=== PATIENT | female | born 1985 | race Caucasian/White ===

== ENCOUNTER → 2017-05-04 | Outpatient (CLI) | payer BC ==
--- NOTE | 2017-05-04 10:22 | DIAGNOSTIC IMAGING REPORT ---
SI JOINTS 3 OR MORE VIEWS CLINICAL HISTORY: Low back pain. Trauma. COMPARISON STUDY: No previous studies for comparison. FINDINGS: No fractures are visualized. There is no conventional radiographic evidence of an inflammatory sacroiliitis. IMPRESSION: No bony abnormalities identified. Electronically signed by: Jose Eduardo Viveros M.D. 05/04/2017 10:21 AM Dictated Date/Time: 05/04/2017 10:20 AM
== END | disposition home or self-care (01) ==
LOC: C.RADBC 09:54
PROVIDERS: ATTEND Family Medicine Adult Medicine
DX: M54.5 Low back pain (principal); W19.XXXA Unspecified fall, initial encounter

== ENCOUNTER → 2017-11-17 | Outpatient (CLI) | payer OTHER | LOC: C.PAPS 14:01 | PROVIDERS: ATTEND Physician Assistant | DX: Z12.4 Encounter for screening for malignant neoplasm of cervix (principal) ==

== ENCOUNTER 2022-05-19 07:43 | Inpatient (IN) ==
--- NOTE | 2022-05-19 07:59 | History & Physical Report ---
Date of Service May 19, 2022 Assessment & Plan (1) 41 weeks gestation of : (2) Encounter for induction of labor: Plan - Patient admitted to labor and delivery for initiation of medical induction of labor - Patient received Jarvis bulb placement yesterday, did not dislodge independently - Patient is at 4/75/-2 w/ inconsistent contractions, thus oxytocin augmentation of labor will be started per protocol - Once contractions are progressing, will consider ROM - Will anticipate epidural as contractions arise - Labs pending Admission and Anticipated Discharge Date Admission Date: May 19, 2022 History of Present Illness Chief Complaint: Induction at 41 wks. Primary Care Provider: Julio Mejias MD Subjective: Brittany is a 36 year old female 41w1d with FLORENTIN 05/11/22 determined by LMP who is presenting to L&D for induction of labor. Jarvis bulb placed last evening by Dr. Hogue, has not yet dislodged independently. Complications: None Reason for Induction/: Post-date Movement: Present Fluid Loss/ROM: None Bloody show/discharge: Light amount after Jarvis placement External FHT and uterine monitor: Category 1, baseline HR 130-135, good FHT variability, accelerations present w/o decelerations, inconsistent contractions Last OB appointment: 05/16 Dr. Johnson, regular care outpatient Labs: Blood Type: A+ Antibody Screen: Negative Hg/Hct (today): WBC/Plt (today): Rubella: Immune RPR: Non-reactive Gonorrhea: Negative Chlamydia: Negative HIV: Negative HbSAg: Negative GBS: Negative Cff-DNA/CF-SMA: Declined Allergies Allergy/AdvReac Type Severity Reaction Status Date / Time No Known Drug Allergies Allergy Verified 05/16/22 15:33 Home Medications Medication Instructions Recorded Confirmed Type prenat.vits,toro,[id number] 1 tab PO DAILY 09/25/21 05/19/22 History Patient History Medical History H/O varicella Hypertriglyceridemia Surgical History S/P tonsillectomy [place] teeth extracted Family History Grandmother (Paternal) Diabetes Grandfather (Maternal) Colorectal cancer Father A-fib Other Alzheimer disease Dyslipidemia Hypertension Parkinson disease Twin Denies family history of Ovarian cancer Breast cancer Social History Smoking Status: Never smoker Second Hand Exposure: No; Hx Alcohol Use: No Hx Substance Use: No Preferred Language: Swedish Communication Ability: Effective Glost Tile Sorter Required: No Beliefs That Will Affect Care: None marital status: marital status details: Ramon (39) [phone] Current Living Situation: Spouse Current Living Situation Comment: : Ramon current occupational status: employed 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 No acute distress. Cardiac: Regular rate and rhythm, no murmurs/rubs/gallops. Respiratory: CTAB, no wheezes/rales/rhonchi. No increased work of breathing. Symmetrical chest rise. No respiratory distress. Abdomen: Gravid; EFW 7-[address] Johnson, FHT present, vertex position Pelvic: Dilation 4 cm; Effacement 75; Station -[address] Johnson Lower Extremities: No lower extremity edema or swelling. No deep calf pain. Gladis's negative bilaterally. Results & Data ([facility]) Vital Signs (Past 12 Hours) Vital Signs Pulse BP 05/19/22 07:53 86 128/77 Supervising Physician Co-Signing Physician Notes Resident Physician Supervision Note: I interviewed and examined the patient. Discussed with Dr. Blunt and agree with findings and plan as documented in the note. Any exceptions or clarifications are listed here: agrree with above, planned postdates induction. jarvis removed. cx favorable. pitocin and arom when indicated. epidural on demand. fetus category one. anticipate . Documented By: Mulu Johnson MD, FACOG Resident Activity Tracking Resident Involvement: Resident Care Provided Care Provided: OB Delivery
[2022-05-19] MEDS ORDERED: LIDOCAINE 1% LOCAL 20 ML VIAL INFIL PRN (08:00)
[2022-05-19] MEDS ORDERED: OXYTOCIN 30 UNITS/500 ML BAG IV PRN ×2 (08:00→08:01)
[2022-05-19 08:23] LABS: Hematocrit (blood only) 34.7 % (34.1-44.9); Hemoglobin 11.9 g/dl (12.0-16.0); Mean Corpuscular Hemoglobin 29.8 pg (25.0-34.0); Mean Corpuscular Hgb Conc 34.3 g/dL (32.0-36.0); Mean Corpuscular Volume 86.8 fL (80.0-100.0); Mean Platelet Volume 9.4 fL (9.4-12.3); Platelet Count 184 K/uL (130-400); RDW Coefficient of Variation 13.1 % (11.5-14.5); RDW Standard Deviation 40.9 fL (36.4-46.3); White Blood Count 9.11 K/ul (4.8-10.8)
[2022-05-19] MEDS: LACTATED RINGER'S 1,000 ML IV PRN ×3 (08:25→22:12)
[2022-05-19] MEDS ORDERED: ePHEDrine sulfate 50 MG/ML AMP ONE (12:33)
[2022-05-19] MEDS ORDERED: SODIUM CHLORIDE 0.9% INJ 10 ML VIAL ONE (12:33)
[2022-05-19] MEDS ORDERED: fentaNYL citrate 100 MCG/2 ML VIAL ONE (12:33)
[2022-05-19] MEDS ORDERED: BUPIVACAINE 0.25% 30 ML VIAL ONE (12:33)
[2022-05-19] MEDS ORDERED: fentaNYL 2MCG/ML ROPIVACAINE 1.25MG/ML 100 ML BAG EPI ONE (12:34)
[2022-05-19] MEDS ORDERED: LIDOCAINE 2%/EPINEPHRINE 1:200,000 20 ML SDV ONE (12:34)
--- NOTE | 2022-05-19 12:52 | Anesthesiology Consultation ---
Date of Service May 19, 2022 Assessment & Plan Chart Review Chart Review: Acceptable Risk for Surgery, Patient NOT seen in Pre Admission Testing and Acceptable Risk for Labor Epidural Consults Requested none ASA ASA2 Proposed Anesthesia Anesthesia Type: Labor Epidural and CSE History Height/Weight Height: 5 ft 9 in Weight: 75.296 kg Allergies Allergy/AdvReac Type Severity Reaction Status Date / Time No Known Drug Allergies Allergy Verified 05/16/22 15:33 Medications Home Medications Medication Instructions Recorded Confirmed Last Taken prenat.vits,toro,[id number]-uuot-bqlra 1 tab PO DAILY 09/25/21 05/19/22 05/18/22 Active Medications Generic Name Dose Route Start Last Admin Trade Name Freq PRN Reason Stop Dose Admin Lactated Ringer's 1,000 mls @ 125 mls/hr 05/19/22 08:00 05/19/22 08:25 Lr IV 05/21/22 07:59 125 mls/hr .Q8H PRN Administration L&D Protocol Protocol Oxytocin 30 units in 500 mls @ 14 mls/hr 05/19/22 08:01 05/19/22 12:00 Pitocin IV 05/21/22 08:00 0.84 units/hr .Q24H PRN 14 mls/hr Labor Induction/Augmentation Titration Protocol 0.84 UNITS/HR Past Medical History Medical History H/O varicella Hypertriglyceridemia Exercise / Class Metabolic Activity II 4-5 Yardwork/Stairs/Walk up hill Past Family History Family History Grandmother (Paternal) Diabetes Grandfather (Maternal) Colorectal cancer Father A-fib Other Alzheimer disease Dyslipidemia Hypertension Parkinson disease Twin Denies family history of Ovarian cancer Breast cancer Past Surgical History Surgical History S/P tonsillectomy [place] teeth extracted Past Anesthesia History No Hx of Anesthesia Complications and No Family Hx of Anesthesia Complications History of PONV No Hx of PONV and No Hx of Motion Sickness Social History Smoking Status: Never smoker Hx Alcohol Use: No Hx Substance Use: No substance use type: does not use Physical Exam Vital Signs Last Vital Signs Temp 36.5 C 05/19/22 12:00 Pulse 70 05/19/22 11:20 Resp 16 05/19/22 07:57 BP 117/68 05/19/22 11:20 Testing Laboratory Results 05/19/22 08:13
[2022-05-19] MEDS ORDERED: NALOXONE HCL 1 MG in SODIUM CHLORIDE 0.9% 1000ML 1,000 ML IV PRN (13:31)
[2022-05-19] MEDS ORDERED: diphenhydrAMINE 50 MG/ML VIAL IV PRN (13:31)
[2022-05-19] MEDS ORDERED: PROMETHAZINE HCL 25 MG in SODIUM CHLORIDE 0.9% 50 ML IV PRN (13:31)
[2022-05-19] MEDS ORDERED: ePHEDrine sulfate 50 MG/ML AMP IV PRN (13:31)
[2022-05-19] MEDS ORDERED: ONDANSETRON INJ 2 MG/ML 2 ML VIAL IV PRN (13:31)
[2022-05-19] MEDS ORDERED: fentaNYL 2MCG/ML ROPIVACAINE 1.25MG/ML 100 ML BAG EPI PRN (13:31)
[2022-05-19] MEDS ORDERED: NALOXONE HCL 0.4 MG/1 ML VIAL/CARP IV PRN (13:31)
[2022-05-19] MEDS ORDERED: NALBUPHINE HCL INJ 10 MG/ML AMP IV PRN (13:31)
--- NOTE | 2022-05-19 14:57 | Labor Progress Brief Note ---
Date of Service May 19, 2022 Subjective comfortable Assessment & Plan (1) Encounter for induction of labor: Plan arom done, continue current management. fetus category one. Admission and Anticipated Discharge Date Admission Date: May 19, 2022 Physical Exam Physical Exam: cx--4-5/75/-2 arom--clear toco--q2-4min, pit at 20 efm--130s wtih mod variability, accels to 150s, no decels Results & Data ([facility]) Vital Signs (Past 12 Hours) Vital Signs Temp Pulse Resp BP Pulse Ox 05/19/22 07:57 36.4 C L 86 16 127/77 05/19/22 14:50 100 05/19/22 14:50 73 05/19/22 14:45 100 05/19/22 14:45 60 05/19/22 14:42 57 L 05/19/22 14:42 108/65 05/19/22 14:40 100 05/19/22 14:40 58 L 05/19/22 14:35 100 05/19/22 14:35 59 L 05/19/22 14:30 98 05/19/22 14:30 62 05/19/22 14:28 94 05/19/22 14:28 63 05/19/22 14:27 60 05/19/22 14:27 108/65 05/19/22 14:25 100 05/19/22 14:25 62 05/19/22 14:20 100 05/19/22 14:20 64 05/19/22 14:15 100 05/19/22 14:15 61 05/19/22 14:10 100 05/19/22 14:10 62 05/19/22 14:07 59 L 05/19/22 14:07 114/69 05/19/22 14:05 100 05/19/22 14:05 63 05/19/22 14:02 66 05/19/22 14:02 110/72 05/19/22 14:00 100 05/19/22 14:00 64 05/19/22 13:57 63 05/19/22 13:57 109/74 05/19/22 13:55 100 05/19/22 13:55 63 05/19/22 13:52 61 05/19/22 13:52 109/62 05/19/22 13:50 100 05/19/22 13:50 63 05/19/22 13:47 66 05/19/22 13:47 114/64 05/19/22 13:45 99 05/19/22 13:45 70 05/19/22 13:43 63 05/19/22 13:43 112/61 05/19/22 13:40 99 05/19/22 13:40 68 05/19/22 13:37 68 05/19/22 13:37 114/65 05/19/22 13:35 99 05/19/22 13:35 68 05/19/22 13:30 99 05/19/22 13:30 69 05/19/22 13:28 73 05/19/22 13:28 112/68 05/19/22 13:25 100 05/19/22 13:25 82 05/19/22 13:26 68 05/19/22 13:26 117/79 05/19/22 13:20 100 05/19/22 13:20 77 05/19/22 13:15 99 05/19/22 13:15 82 05/19/22 13:12 91 05/19/22 13:12 94 H 05/19/22 13:10 100 05/19/22 13:10 79 05/19/22 13:10 81 05/19/22 13:10 116/71 05/19/22 13:04 100 05/19/22 13:04 84 05/19/22 12:00 36.5 C 05/19/22 11:20 70 05/19/22 11:20 117/68 05/19/22 10:22 71 05/19/22 10:22 114/70 05/19/22 07:53 86 128/77 Coding Level of Care Code None Diagnoses Encounter for induction of labor Z34.90
--- NOTE | 2022-05-19 17:19 | Labor Progress Brief Note ---
Date of Service May 19, 2022 Subjective comfortable Assessment & Plan (1) Encounter for induction of labor: Plan iupc placed. will increase max of pit to 30, fetus category one. Admission and Anticipated Discharge Date Admission Date: May 19, 2022 Physical Exam Physical Exam: cx--4-5/75/-2 toco--q2-6min, pit at 20 efm--120s with mod variability, accels to 160s, no decels Results & Data ([facility]) Vital Signs (Past 12 Hours) Vital Signs Temp Pulse Resp BP Pulse Ox 05/19/22 07:57 36.4 C L 86 16 127/77 05/19/22 17:10 99 05/19/22 17:10 73 05/19/22 17:05 100 05/19/22 17:05 68 05/19/22 17:00 100 05/19/22 17:00 62 05/19/22 16:57 60 05/19/22 16:57 98/56 L 05/19/22 16:55 99 05/19/22 16:55 63 05/19/22 16:50 100 05/19/22 16:50 72 05/19/22 16:50 91 05/19/22 16:50 71 05/19/22 16:45 100 05/19/22 16:45 60 05/19/22 16:42 58 L 05/19/22 16:42 99/61 L 05/19/22 16:40 100 05/19/22 16:40 62 05/19/22 16:35 100 05/19/22 16:35 68 05/19/22 16:30 99 05/19/22 16:30 67 05/19/22 16:25 99 05/19/22 16:25 73 05/19/22 15:59 20 05/19/22 15:59 20 05/19/22 16:20 99 05/19/22 16:20 69 05/19/22 16:15 98 05/19/22 16:15 61 05/19/22 16:11 67 05/19/22 16:11 103/59 L 05/19/22 16:10 100 05/19/22 16:10 66 05/19/22 16:05 99 05/19/22 16:05 63 05/19/22 16:00 100 05/19/22 16:00 71 05/19/22 15:56 62 05/19/22 15:56 104/60 05/19/22 15:55 100 05/19/22 15:55 60 05/19/22 15:50 99 05/19/22 15:50 74 05/19/22 15:45 100 05/19/22 15:45 73 05/19/22 15:41 64 05/19/22 15:41 100/56 L 05/19/22 15:40 99 05/19/22 15:40 63 05/19/22 15:39 93 05/19/22 15:39 71 05/19/22 15:35 100 05/19/22 15:35 65 05/19/22 15:30 100 05/19/22 15:30 61 05/19/22 15:26 65 05/19/22 15:26 98/53 L 05/19/22 15:25 100 05/19/22 15:25 60 05/19/22 15:20 100 05/19/22 15:20 62 05/19/22 15:15 100 05/19/22 15:15 66 05/19/22 15:10 100 05/19/22 15:10 69 05/19/22 15:11 61 05/19/22 15:11 101/58 L 05/19/22 14:52 36.9 C 05/19/22 15:05 100 05/19/22 15:05 68 05/19/22 15:00 100 05/19/22 15:00 67 05/19/22 14:57 62 05/19/22 14:57 107/59 L 05/19/22 14:55 100 05/19/22 14:55 66 05/19/22 14:50 100 05/19/22 14:50 73 05/19/22 14:45 100 05/19/22 14:45 60 05/19/22 14:42 57 L 05/19/22 14:42 108/65 05/19/22 14:40 100 05/19/22 14:40 58 L 05/19/22 14:35 100 05/19/22 14:35 59 L 05/19/22 14:30 98 05/19/22 14:30 62 05/19/22 14:28 94 05/19/22 14:28 63 09/26/22 14:27 60 05/19/22 14:27 108/65 05/19/22 14:25 100 05/19/22 14:25 62 05/19/22 14:20 100 05/19/22 14:20 64 05/19/22 14:15 100 05/19/22 14:15 61 05/19/22 14:10 100 05/19/22 14:10 62 05/19/22 14:07 59 L 05/19/22 14:07 114/69 05/19/22 14:05 100 05/19/22 14:05 63 05/19/22 14:02 66 05/19/22 14:02 110/72 05/19/22 14:00 100 05/19/22 14:00 64 05/19/22 13:57 63 05/19/22 13:57 109/74 05/19/22 13:55 100 05/19/22 13:55 63 05/19/22 13:52 61 05/19/22 13:52 109/62 05/19/22 13:50 100 05/19/22 13:50 63 05/19/22 13:47 66 05/19/22 13:47 114/64 05/19/22 13:45 99 05/19/22 13:45 70 05/19/22 13:43 63 05/19/22 13:43 112/61 05/19/22 13:40 99 05/19/22 13:40 68 05/19/22 13:37 68 05/19/22 13:37 114/65 05/19/22 13:35 99 05/19/22 13:35 68 05/19/22 13:30 99 05/19/22 13:30 69 05/19/22 13:28 73 05/19/22 13:28 112/68 05/19/22 13:25 100 05/19/22 13:25 82 05/19/22 13:26 68 05/19/22 13:26 117/79 05/19/22 13:20 100 05/19/22 13:20 77 05/19/22 13:15 99 05/19/22 13:15 82 05/19/22 13:12 91 05/19/22 13:12 94 H 05/19/22 13:10 100 05/19/22 13:10 79 05/19/22 13:10 81 05/19/22 13:10 116/71 05/19/22 13:04 100 05/19/22 13:04 84 05/19/22 12:00 36.5 C 05/19/22 11:20 70 05/19/22 11:20 117/68 05/19/22 10:22 71 05/19/22 10:22 114/70 05/19/22 07:53 86 128/77 Coding Level of Care Code None Diagnoses Encounter for induction of labor Z34.90
--- NOTE | 2022-05-19 20:05 | Labor Progress Brief Note ---
Date of Service May 19, 2022 Subjective comfortable Assessment & Plan (1) Encounter for induction of labor: Plan continue current plan. Fetus overall category one. Starting to finally make some change. MVUs are over 200 but pattern is irregular. Will continue to monitor closely. Admission and Anticipated Discharge Date Admission Date: May 19, 2022 Physical Exam Physical Exam: cx--/-2 toco--irregular pattern with spacing. q2-5min, pit at 24 efm--130s with mod variability, small accels , early decels with some contractions. Results & Data ([facility]) Vital Signs (Past 12 Hours) Vital Signs Temp Pulse Resp BP Pulse Ox 05/19/22 20:00 100 05/19/22 20:00 68 05/19/22 19:55 100 05/19/22 19:55 67 05/19/22 19:56 63 05/19/22 19:56 113/68 05/19/22 19:52 91 05/19/22 19:52 71 05/19/22 19:50 100 05/19/22 19:50 70 05/19/22 19:50 58 L 05/19/22 19:50 106/65 05/19/22 19:45 100 05/19/22 19:45 58 L 05/19/22 19:40 100 05/19/22 19:40 60 05/19/22 19:35 98 05/19/22 19:35 65 05/19/22 19:30 99 05/19/22 19:30 59 L 05/19/22 19:30 67 05/19/22 19:30 112/65 05/19/22 19:25 95 05/19/22 19:25 63 05/19/22 19:22 89 L 05/19/22 19:22 67 05/19/22 19:20 100 05/19/22 19:20 61 05/19/22 19:15 100 05/19/22 19:15 60 05/19/22 19:13 92 05/19/22 19:13 64 05/19/22 19:11 65 05/19/22 19:11 109/74 05/19/22 19:10 100 05/19/22 19:10 66 05/19/22 19:00 18 05/19/22 19:00 18 05/19/22 19:05 100 05/19/22 19:05 57 L 05/19/22 19:03 92 05/19/22 19:03 71 05/19/22 19:00 100 05/19/22 19:00 60 05/19/22 18:57 60 05/19/22 18:57 107/64 05/19/22 18:55 100 05/19/22 18:55 59 L 05/19/22 18:50 100 05/19/22 18:50 65 05/19/22 18:45 100 05/19/22 18:45 67 05/19/22 18:41 63 05/19/22 18:41 103/58 L 05/19/22 18:40 100 05/19/22 18:40 61 05/19/22 18:35 100 05/19/22 18:35 62 05/19/22 18:30 16 05/19/22 18:30 16 05/19/22 18:30 100 05/19/22 18:30 58 L 05/19/22 18:26 57 L 05/19/22 18:26 101/59 L 05/19/22 18:25 100 05/19/22 18:25 57 L 05/19/22 18:20 100 05/19/22 18:20 57 L 05/19/22 18:15 100 05/19/22 18:15 59 L 05/19/22 18:11 57 L 05/19/22 18:11 104/62 05/19/22 18:10 100 05/19/22 18:10 60 05/19/22 18:05 99 05/19/22 18:05 60 05/19/22 18:00 100 05/19/22 18:00 56 L 05/19/22 17:55 100 05/19/22 17:55 58 L 05/19/22 17:56 60 05/19/22 17:56 97/56 L 05/19/22 17:50 100 05/19/22 17:50 58 L 05/19/22 17:45 100 05/19/22 17:45 63 05/19/22 17:42 60 05/19/22 17:42 104/62 05/19/22 17:40 100 05/19/22 17:40 63 05/19/22 17:30 18 05/19/22 17:30 18 09/26/22 17:35 100 05/19/22 17:35 62 05/19/22 17:30 100 05/19/22 17:30 73 05/19/22 17:25 100 05/19/22 17:25 64 05/19/22 17:26 64 05/19/22 17:26 100/55 L 05/19/22 17:23 90 05/19/22 17:23 66 05/19/22 17:20 100 05/19/22 17:20 63 05/19/22 17:15 100 05/19/22 17:15 75 05/19/22 17:10 99 05/19/22 17:10 73 05/19/22 17:05 100 05/19/22 17:05 68 05/19/22 17:00 100 05/19/22 17:00 62 05/19/22 16:57 60 05/19/22 16:57 98/56 L 05/19/22 16:55 99 05/19/22 16:55 63 05/19/22 16:50 100 05/19/22 16:50 72 05/19/22 16:50 91 05/19/22 16:50 71 05/19/22 16:45 100 05/19/22 16:45 60 05/19/22 16:42 58 L 05/19/22 16:42 99/61 L 05/19/22 16:40 100 05/19/22 16:40 62 05/19/22 16:35 100 05/19/22 16:35 68 05/19/22 16:30 99 05/19/22 16:30 67 05/19/22 16:25 99 05/19/22 16:25 73 05/19/22 15:59 20 05/19/22 15:59 20 05/19/22 16:20 99 05/19/22 16:20 69 05/19/22 16:15 98 05/19/22 16:15 61 05/19/22 16:11 67 05/19/22 16:11 103/59 L 05/19/22 16:10 100 05/19/22 16:10 66 05/19/22 16:05 99 05/19/22 16:05 63 05/19/22 16:00 100 05/19/22 16:00 71 09/26/22 15:56 62 05/19/22 15:56 104/60 05/19/22 15:55 100 05/19/22 15:55 60 05/19/22 15:50 99 05/19/22 15:50 74 05/19/22 15:45 100 05/19/22 15:45 73 05/19/22 15:41 64 05/19/22 15:41 100/56 L 05/19/22 15:40 99 05/19/22 15:40 63 05/19/22 15:39 93 05/19/22 15:39 71 05/19/22 15:35 100 05/19/22 15:35 65 05/19/22 15:30 100 05/19/22 15:30 61 05/19/22 15:26 65 05/19/22 15:26 98/53 L 05/19/22 15:25 100 05/19/22 15:25 60 05/19/22 15:20 100 05/19/22 15:20 62 05/19/22 15:15 100 05/19/22 15:15 66 05/19/22 15:10 100 05/19/22 15:10 69 05/19/22 15:11 61 05/19/22 15:11 101/58 L 05/19/22 14:52 36.9 C 05/19/22 15:05 100 05/19/22 15:05 68 05/19/22 15:00 100 05/19/22 15:00 67 05/19/22 14:57 62 05/19/22 14:57 107/59 L 05/19/22 14:55 100 05/19/22 14:55 66 05/19/22 14:50 100 05/19/22 14:50 73 05/19/22 14:45 100 05/19/22 14:45 60 05/19/22 14:42 57 L 05/19/22 14:42 108/65 05/19/22 14:40 100 05/19/22 14:40 58 L 05/19/22 14:35 100 05/19/22 14:35 59 L 05/19/22 14:30 98 05/19/22 14:30 62 05/19/22 14:28 94 05/19/22 14:28 63 05/19/22 14:27 60 05/19/22 14:27 108/65 05/19/22 14:25 100 05/19/22 14:25 62 05/19/22 14:20 100 05/19/22 14:20 64 05/19/22 14:15 100 05/19/22 14:15 61 05/19/22 14:10 100 05/19/22 14:10 62 05/19/22 14:07 59 L 05/19/22 14:07 114/69 05/19/22 14:05 100 05/19/22 14:05 63 05/19/22 14:02 66 05/19/22 14:02 110/72 05/19/22 14:00 100 05/19/22 14:00 64 05/19/22 13:57 63 05/19/22 13:57 109/74 05/19/22 13:55 100 05/19/22 13:55 63 05/19/22 13:52 61 05/19/22 13:52 109/62 05/19/22 13:50 100 05/19/22 13:50 63 05/19/22 13:47 66 05/19/22 13:47 114/64 05/19/22 13:45 99 05/19/22 13:45 70 05/19/22 13:43 63 05/19/22 13:43 112/61 05/19/22 13:40 99 05/19/22 13:40 68 05/19/22 13:37 68 05/19/22 13:37 114/65 05/19/22 13:35 99 05/19/22 13:35 68 05/19/22 13:30 99 05/19/22 13:30 69 05/19/22 13:28 73 05/19/22 13:28 112/68 05/19/22 13:25 100 05/19/22 13:25 82 05/19/22 13:26 68 05/19/22 13:26 117/79 05/19/22 13:20 100 05/19/22 13:20 77 05/19/22 13:15 99 05/19/22 13:15 82 05/19/22 13:12 91 05/19/22 13:12 94 H 05/19/22 13:10 100 05/19/22 13:10 79 05/19/22 13:10 81 05/19/22 13:10 116/71 05/19/22 13:04 100 05/19/22 13:04 84 05/19/22 12:00 36.5 C 05/19/22 11:20 70 05/19/22 11:20 117/68 05/19/22 10:22 71 05/19/22 10:22 114/70 Coding Level of Care Code None Diagnoses Encounter for induction of labor Z34.90
--- NOTE | 2022-05-19 22:10 | Labor Progress Brief Note ---
Date of Service May 19, 2022 Subjective noted some left sided pain, repositioned Assessment & Plan (1) Encounter for induction of labor: Plan begin stage two . fetus overall reassuring. anticipate . Admission and Anticipated Discharge Date Admission Date: May 19, 2022 Physical Exam Physical Exam: cx--c/c/+2 toco--q2-5min efm--130s wtih mod variabiltiy, small accels, early with some contractions. Results & Data ([facility]) Vital Signs (Past 12 Hours) Vital Signs Temp Pulse Resp BP Pulse Ox 05/19/22 22:05 100 05/19/22 22:05 62 05/19/22 22:00 100 05/19/22 22:00 61 05/19/22 21:56 61 05/19/22 21:56 111/69 05/19/22 21:55 97 05/19/22 21:55 71 05/19/22 21:50 100 05/19/22 21:50 58 L 05/19/22 21:45 98 05/19/22 21:45 71 05/19/22 21:40 16 05/19/22 21:40 36.9 C 16 05/19/22 21:40 99 05/19/22 21:40 65 05/19/22 21:41 57 L 05/19/22 21:41 99/55 L 05/19/22 21:35 98 05/19/22 21:35 60 05/19/22 21:30 99 05/19/22 21:30 58 L 05/19/22 21:26 59 L 05/19/22 21:26 97/55 L 05/19/22 21:25 99 05/19/22 21:25 58 L 05/19/22 21:20 99 05/19/22 21:20 61 05/19/22 21:15 100 05/19/22 21:15 58 L 05/19/22 21:10 100 05/19/22 21:10 59 L 05/19/22 21:11 66 05/19/22 21:11 98/59 L 05/19/22 21:10 92 05/19/22 21:10 61 05/19/22 21:05 100 05/19/22 21:05 67 05/19/22 21:00 100 05/19/22 21:00 62 05/19/22 20:56 58 L 05/19/22 20:56 100/58 L 05/19/22 20:55 100 05/19/22 20:55 60 05/19/22 20:50 100 05/19/22 20:50 69 05/19/22 20:45 97 05/19/22 20:45 64 05/19/22 20:42 63 05/19/22 20:42 99/55 L 05/19/22 20:40 95 05/19/22 20:40 72 05/19/22 20:35 98 05/19/22 20:35 67 05/19/22 20:30 99 05/19/22 20:30 70 05/19/22 20:27 64 05/19/22 20:27 98/53 L 05/19/22 20:25 99 05/19/22 20:25 71 05/19/22 19:30 18 05/19/22 19:30 36.6 C 18 05/19/22 20:20 99 05/19/22 20:20 64 05/19/22 20:15 99 05/19/22 20:15 68 05/19/22 20:10 100 05/19/22 20:10 62 05/19/22 20:11 63 05/19/22 20:11 91/53 L 05/19/22 20:05 100 05/19/22 20:05 66 05/19/22 20:00 100 05/19/22 20:00 68 05/19/22 19:55 100 05/19/22 19:55 67 05/19/22 19:56 63 05/19/22 19:56 113/68 05/19/22 19:52 91 05/19/22 19:52 71 05/19/22 19:50 100 05/19/22 19:50 70 05/19/22 19:50 58 L 05/19/22 19:50 106/65 05/19/22 19:45 100 05/19/22 19:45 58 L 05/19/22 19:40 100 05/19/22 19:40 60 05/19/22 19:35 98 05/19/22 19:35 65 05/19/22 19:30 99 05/19/22 19:30 59 L 05/19/22 19:30 67 05/19/22 19:30 112/65 05/19/22 19:25 95 05/19/22 19:25 63 05/19/22 19:22 89 L 05/19/22 19:22 67 05/19/22 19:20 100 05/19/22 19:20 61 05/19/22 19:15 100 05/19/22 19:15 60 05/19/22 19:13 92 05/19/22 19:13 64 05/19/22 19:11 65 05/19/22 19:11 109/74 05/19/22 19:10 100 05/19/22 19:10 66 05/19/22 19:00 18 05/19/22 19:00 18 05/19/22 19:05 100 05/19/22 19:05 57 L 05/19/22 19:03 92 05/19/22 19:03 71 05/19/22 19:00 100 05/19/22 19:00 60 05/19/22 18:57 60 05/19/22 18:57 107/64 05/19/22 18:55 100 05/19/22 18:55 59 L 05/19/22 18:50 100 05/19/22 18:50 65 05/19/22 18:45 100 05/19/22 18:45 67 05/19/22 18:41 63 05/19/22 18:41 103/58 L 05/19/22 18:40 100 05/19/22 18:40 61 05/19/22 18:35 100 05/19/22 18:35 62 05/19/22 18:30 16 05/19/22 18:30 16 05/19/22 18:30 100 05/19/22 18:30 58 L 05/19/22 18:26 57 L 05/19/22 18:26 101/59 L 05/19/22 18:25 100 05/19/22 18:25 57 L 05/19/22 18:20 100 05/19/22 18:20 57 L 05/19/22 18:15 100 05/19/22 18:15 59 L 05/19/22 18:11 57 L 05/19/22 18:11 104/62 05/19/22 18:10 100 05/19/22 18:10 60 05/19/22 18:05 99 05/19/22 18:05 60 05/19/22 18:00 100 05/19/22 18:00 56 L 05/19/22 17:55 100 05/19/22 17:55 58 L 05/19/22 17:56 60 05/19/22 17:56 97/56 L 05/19/22 17:50 100 05/19/22 17:50 58 L 05/19/22 17:45 100 05/19/22 17:45 63 05/19/22 17:42 60 05/19/22 17:42 104/62 05/19/22 17:40 100 05/19/22 17:40 63 05/19/22 17:30 18 05/19/22 17:30 18 05/19/22 17:35 100 05/19/22 17:35 62 05/19/22 17:30 100 05/19/22 17:30 73 05/19/22 17:25 100 05/19/22 17:25 64 05/19/22 17:26 64 05/19/22 17:26 100/55 L 05/19/22 17:23 90 05/19/22 17:23 66 05/19/22 17:20 100 05/19/22 17:20 63 05/19/22 17:15 100 05/19/22 17:15 75 05/19/22 17:10 99 05/19/22 17:10 73 05/19/22 17:05 100 05/19/22 17:05 68 05/19/22 17:00 100 05/19/22 17:00 62 05/19/22 16:57 60 05/19/22 16:57 98/56 L 05/19/22 16:55 99 05/19/22 16:55 63 05/19/22 16:50 100 05/19/22 16:50 72 05/19/22 16:50 91 05/19/22 16:50 71 05/19/22 16:45 100 05/19/22 16:45 60 05/19/22 16:42 58 L 05/19/22 16:42 99/61 L 05/19/22 16:40 100 05/19/22 16:40 62 05/19/22 16:35 100 05/19/22 16:35 68 05/19/22 16:30 99 05/19/22 16:30 67 05/19/22 16:25 99 05/19/22 16:25 73 05/19/22 15:59 20 05/19/22 15:59 20 05/19/22 16:20 99 05/19/22 16:20 69 05/19/22 16:15 98 05/19/22 16:15 61 05/19/22 16:11 67 05/19/22 16:11 103/59 L 05/19/22 16:10 100 05/19/22 16:10 66 05/19/22 16:05 99 05/19/22 16:05 63 05/19/22 16:00 100 05/19/22 16:00 71 05/19/22 15:56 62 05/19/22 15:56 104/60 05/19/22 15:55 100 05/19/22 15:55 60 05/19/22 15:50 99 05/19/22 15:50 74 05/19/22 15:45 100 05/19/22 15:45 73 05/19/22 15:41 64 05/19/22 15:41 100/56 L 05/19/22 15:40 99 05/19/22 15:40 63 05/19/22 15:39 93 05/19/22 15:39 71 05/19/22 15:35 100 05/19/22 15:35 65 05/19/22 15:30 100 05/19/22 15:30 61 05/19/22 15:26 65 05/19/22 15:26 98/53 L 05/19/22 15:25 100 05/19/22 15:25 60 05/19/22 15:20 100 05/19/22 15:20 62 05/19/22 15:15 100 05/19/22 15:15 66 05/19/22 15:10 100 05/19/22 15:10 69 05/19/22 15:11 61 05/19/22 15:11 101/58 L 05/19/22 14:52 36.9 C 05/19/22 15:05 100 05/19/22 15:05 68 05/19/22 15:00 100 05/19/22 15:00 67 05/19/22 14:57 62 05/19/22 14:57 107/59 L 05/19/22 14:55 100 05/19/22 14:55 66 05/19/22 14:50 100 05/19/22 14:50 73 05/19/22 14:45 100 05/19/22 14:45 60 05/19/22 14:42 57 L 05/19/22 14:42 108/65 05/19/22 14:40 100 05/19/22 14:40 58 L 05/19/22 14:35 100 05/19/22 14:35 59 L 05/19/22 14:30 98 05/19/22 14:30 62 05/19/22 14:28 94 05/19/22 14:28 63 05/19/22 14:27 60 05/19/22 14:27 108/65 05/19/22 14:25 100 05/19/22 14:25 62 05/19/22 14:20 100 05/19/22 14:20 64 05/19/22 14:15 100 05/19/22 14:15 61 05/19/22 14:10 100 05/19/22 14:10 62 05/19/22 14:07 59 L 05/19/22 14:07 114/69 05/19/22 14:05 100 05/19/22 14:05 63 05/19/22 14:02 66 05/19/22 14:02 110/72 05/19/22 14:00 100 05/19/22 14:00 64 05/19/22 13:57 63 05/19/22 13:57 109/74 05/19/22 13:55 100 05/19/22 13:55 63 05/19/22 13:52 61 05/19/22 13:52 109/62 05/19/22 13:50 100 05/19/22 13:50 63 05/19/22 13:47 66 05/19/22 13:47 114/64 05/19/22 13:45 99 05/19/22 13:45 70 05/19/22 13:43 63 05/19/22 13:43 112/61 05/19/22 13:40 99 05/19/22 13:40 68 05/19/22 13:37 68 05/19/22 13:37 114/65 05/19/22 13:35 99 05/19/22 13:35 68 05/19/22 13:30 99 05/19/22 13:30 69 05/19/22 13:28 73 05/19/22 13:28 112/68 05/19/22 13:25 100 05/19/22 13:25 82 05/19/22 13:26 68 05/19/22 13:26 117/79 05/19/22 13:20 100 05/19/22 13:20 77 05/19/22 13:15 99 05/19/22 13:15 82 05/19/22 13:12 91 05/19/22 13:12 94 H 05/19/22 13:10 100 05/19/22 13:10 79 05/19/22 13:10 81 05/19/22 13:10 116/71 05/19/22 13:04 100 05/19/22 13:04 84 05/19/22 12:00 36.5 C 05/19/22 11:20 70 05/19/22 11:20 117/68 05/19/22 10:22 71 05/19/22 10:22 114/70 Coding Level of Care Code None Diagnoses Encounter for induction of labor Z34.90
--- NOTE | 2022-05-19 23:26 | Labor Progress Brief Note ---
Date of Service May 19, 2022 Subjective has been pushing for about one hour. good effort Assessment & Plan (1) Encounter for induction of labor: Plan continue stage 2. fetus overall reassuring. Admission and Anticipated Discharge Date Admission Date: May 19, 2022 Physical Exam Physical Exam: cx--c/c/+2-3 toco--q2-3min efm--150s with mod variability, variables with pushing. good recovery. Results & Data ([facility]) Vital Signs (Past 12 Hours) Vital Signs Temp Pulse Resp BP Pulse Ox 05/19/22 23:20 97 05/19/22 23:20 122 H 05/19/22 23:15 97 05/19/22 23:15 124 H 05/19/22 23:11 118 H 05/19/22 23:11 122/69 05/19/22 23:10 95 05/19/22 23:10 102 H 05/19/22 23:05 97 05/19/22 23:05 106 H 05/19/22 23:04 94 05/19/22 23:04 135 H 05/19/22 23:00 99 05/19/22 23:00 127 H 05/19/22 22:57 92 05/19/22 22:57 105 H 05/19/22 22:56 125 H 05/19/22 22:56 132/53 L 05/19/22 22:55 85 L 05/19/22 22:55 132 H 05/19/22 22:50 99 05/19/22 22:50 109 H 05/19/22 22:45 99 05/19/22 22:45 100 H 05/19/22 22:42 105 H 05/19/22 22:42 145/70 H 05/19/22 22:41 84 L 05/19/22 22:41 102 H 05/19/22 22:40 99 05/19/22 22:40 115 H 05/19/22 22:35 100 05/19/22 22:35 115 H 05/19/22 22:35 82 L 05/19/22 22:35 109 H 05/19/22 22:30 100 05/19/22 22:30 105 H 05/19/22 22:28 136 H 05/19/22 22:28 118/82 05/19/22 22:25 100 05/19/22 22:25 125 H 05/19/22 22:20 97 05/19/22 22:21 90 05/19/22 22:20 85 05/19/22 22:21 105 H 05/19/22 22:15 99 05/19/22 22:15 98 H 05/19/22 22:13 184 H 05/19/22 22:13 125/70 05/19/22 22:10 83 L 05/19/22 22:10 84 05/19/22 22:05 100 05/19/22 22:05 62 05/19/22 22:00 100 05/19/22 22:00 61 05/19/22 21:56 61 05/19/22 21:56 111/69 05/19/22 21:55 97 05/19/22 21:55 71 05/19/22 21:50 100 05/19/22 21:50 58 L 05/19/22 21:45 98 05/19/22 21:45 71 05/19/22 21:40 16 05/19/22 21:40 36.9 C 16 05/19/22 21:40 99 05/19/22 21:40 65 05/19/22 21:41 57 L 05/19/22 21:41 99/55 L 05/19/22 21:35 98 05/19/22 21:35 60 05/19/22 21:30 99 05/19/22 21:30 58 L 05/19/22 21:26 59 L 05/19/22 21:26 97/55 L 05/19/22 21:25 99 05/19/22 21:25 58 L 05/19/22 21:20 99 05/19/22 21:20 61 05/19/22 21:15 100 05/19/22 21:15 58 L 05/19/22 21:10 100 05/19/22 21:10 59 L 05/19/22 21:11 66 05/19/22 21:11 98/59 L 05/19/22 21:10 92 05/19/22 21:10 61 05/19/22 21:05 100 05/19/22 21:05 67 05/19/22 21:00 100 05/19/22 21:00 62 05/19/22 20:56 58 L 05/19/22 20:56 100/58 L 05/19/22 20:55 100 05/19/22 20:55 60 05/19/22 20:50 100 05/19/22 20:50 69 05/19/22 20:45 97 05/19/22 20:45 64 05/19/22 20:42 63 05/19/22 20:42 99/55 L 05/19/22 20:40 95 05/19/22 20:40 72 05/19/22 20:35 98 05/19/22 20:35 67 05/19/22 20:30 99 05/19/22 20:30 70 05/19/22 20:27 64 05/19/22 20:27 98/53 L 05/19/22 20:25 99 05/19/22 20:25 71 05/19/22 19:30 18 05/19/22 19:30 36.6 C 18 05/19/22 20:20 99 05/19/22 20:20 64 05/19/22 20:15 99 05/19/22 20:15 68 05/19/22 20:10 100 05/19/22 20:10 62 05/19/22 20:11 63 05/19/22 20:11 91/53 L 05/19/22 20:05 100 05/19/22 20:05 66 05/19/22 20:00 100 05/19/22 20:00 68 05/19/22 19:55 100 05/19/22 19:55 67 05/19/22 19:56 63 05/19/22 19:56 113/68 05/19/22 19:52 91 05/19/22 19:52 71 05/19/22 19:50 100 05/19/22 19:50 70 05/19/22 19:50 58 L 05/19/22 19:50 106/65 05/19/22 19:45 100 05/19/22 19:45 58 L 05/19/22 19:40 100 05/19/22 19:40 60 05/19/22 19:35 98 05/19/22 19:35 65 05/19/22 19:30 99 05/19/22 19:30 59 L 05/19/22 19:30 67 05/19/22 19:30 112/65 05/19/22 19:25 95 05/19/22 19:25 63 05/19/22 19:22 89 L 05/19/22 19:22 67 05/19/22 19:20 100 05/19/22 19:20 61 05/19/22 19:15 100 05/19/22 19:15 60 05/19/22 19:13 92 05/19/22 19:13 64 05/19/22 19:11 65 05/19/22 19:11 109/74 05/19/22 19:10 100 05/19/22 19:10 66 05/19/22 19:00 18 05/19/22 19:00 18 05/19/22 19:05 100 05/19/22 19:05 57 L 05/19/22 19:03 92 05/19/22 19:03 71 05/19/22 19:00 100 05/19/22 19:00 60 05/19/22 18:57 60 05/19/22 18:57 107/64 05/19/22 18:55 100 05/19/22 18:55 59 L 05/19/22 18:50 100 05/19/22 18:50 65 05/19/22 18:45 100 05/19/22 18:45 67 05/19/22 18:41 63 05/19/22 18:41 103/58 L 05/19/22 18:40 100 05/19/22 18:40 61 05/19/22 18:35 100 05/19/22 18:35 62 05/19/22 18:30 16 05/19/22 18:30 16 05/19/22 18:30 100 05/19/22 18:30 58 L 05/19/22 18:26 57 L 05/19/22 18:26 101/59 L 05/19/22 18:25 100 05/19/22 18:25 57 L 05/19/22 18:20 100 05/19/22 18:20 57 L 05/19/22 18:15 100 05/19/22 18:15 59 L 05/19/22 18:11 57 L 05/19/22 18:11 104/62 05/19/22 18:10 100 05/19/22 18:10 60 05/19/22 18:05 99 05/19/22 18:05 60 05/19/22 18:00 100 05/19/22 18:00 56 L 05/19/22 17:55 100 05/19/22 17:55 58 L 05/19/22 17:56 60 05/19/22 17:56 97/56 L 05/19/22 17:50 100 05/19/22 17:50 58 L 05/19/22 17:45 100 05/19/22 17:45 63 05/19/22 17:42 60 05/19/22 17:42 104/62 05/19/22 17:40 100 05/19/22 17:40 63 05/19/22 17:30 18 05/19/22 17:30 18 05/19/22 17:35 100 05/19/22 17:35 62 05/19/22 17:30 100 05/19/22 17:30 73 05/19/22 17:25 100 05/19/22 17:25 64 05/19/22 17:26 64 05/19/22 17:26 100/55 L 05/19/22 17:23 90 05/19/22 17:23 66 05/19/22 17:20 100 05/19/22 17:20 63 05/19/22 17:15 100 05/19/22 17:15 75 05/19/22 17:10 99 05/19/22 17:10 73 05/19/22 17:05 100 05/19/22 17:05 68 05/19/22 17:00 100 05/19/22 17:00 62 05/19/22 16:57 60 05/19/22 16:57 98/56 L 05/19/22 16:55 99 05/19/22 16:55 63 05/19/22 16:50 100 05/19/22 16:50 72 05/19/22 16:50 91 05/19/22 16:50 71 05/19/22 16:45 100 05/19/22 16:45 60 05/19/22 16:42 58 L 05/19/22 16:42 99/61 L 05/19/22 16:40 100 05/19/22 16:40 62 05/19/22 16:35 100 05/19/22 16:35 68 05/19/22 16:30 99 05/19/22 16:30 67 05/19/22 16:25 99 05/19/22 16:25 73 05/19/22 15:59 20 05/19/22 15:59 20 05/19/22 16:20 99 05/19/22 16:20 69 05/19/22 16:15 98 05/19/22 16:15 61 05/19/22 16:11 67 05/19/22 16:11 103/59 L 05/19/22 16:10 100 05/19/22 16:10 66 05/19/22 16:05 99 05/19/22 16:05 63 05/19/22 16:00 100 05/19/22 16:00 71 05/19/22 15:56 62 05/19/22 15:56 104/60 05/19/22 15:55 100 05/19/22 15:55 60 05/19/22 15:50 99 05/19/22 15:50 74 05/19/22 15:45 100 05/19/22 15:45 73 05/19/22 15:41 64 05/19/22 15:41 100/56 L 05/19/22 15:40 99 05/19/22 15:40 63 05/19/22 15:39 93 05/19/22 15:39 71 05/19/22 15:35 100 05/19/22 15:35 65 05/19/22 15:30 100 05/19/22 15:30 61 05/19/22 15:26 65 05/19/22 15:26 98/53 L 05/19/22 15:25 100 05/19/22 15:25 60 05/19/22 15:20 100 05/19/22 15:20 62 05/19/22 15:15 100 05/19/22 15:15 66 05/19/22 15:10 100 05/19/22 15:10 69 05/19/22 15:11 61 05/19/22 15:11 101/58 L 05/19/22 14:52 36.9 C 05/19/22 15:05 100 05/19/22 15:05 68 05/19/22 15:00 100 05/19/22 15:00 67 05/19/22 14:57 62 05/19/22 14:57 107/59 L 05/19/22 14:55 100 05/19/22 14:55 66 05/19/22 14:50 100 05/19/22 14:50 73 05/19/22 14:45 100 05/19/22 14:45 60 05/19/22 14:42 57 L 05/19/22 14:42 108/65 05/19/22 14:40 100 05/19/22 14:40 58 L 05/19/22 14:35 100 05/19/22 14:35 59 L 05/19/22 14:30 98 05/19/22 14:30 62 05/19/22 14:28 94 05/19/22 14:28 63 05/19/22 14:27 60 05/19/22 14:27 108/65 05/19/22 14:25 100 05/19/22 14:25 62 05/19/22 14:20 100 05/19/22 14:20 64 05/19/22 14:15 100 05/19/22 14:15 61 05/19/22 14:10 100 05/19/22 14:10 62 05/19/22 14:07 59 L 05/19/22 14:07 114/69 05/19/22 14:05 100 05/19/22 14:05 63 05/19/22 14:02 66 05/19/22 14:02 110/72 05/19/22 14:00 100 05/19/22 14:00 64 05/19/22 13:57 63 05/19/22 13:57 109/74 05/19/22 13:55 100 05/19/22 13:55 63 05/19/22 13:52 61 05/19/22 13:52 109/62 05/19/22 13:50 100 05/19/22 13:50 63 05/19/22 13:47 66 05/19/22 13:47 114/64 05/19/22 13:45 99 05/19/22 13:45 70 05/19/22 13:43 63 05/19/22 13:43 112/61 05/19/22 13:40 99 05/19/22 13:40 68 05/19/22 13:37 68 05/19/22 13:37 114/65 05/19/22 13:35 99 05/19/22 13:35 68 05/19/22 13:30 99 05/19/22 13:30 69 05/19/22 13:28 73 05/19/22 13:28 112/68 05/19/22 13:25 100 05/19/22 13:25 82 05/19/22 13:26 68 05/19/22 13:26 117/79 05/19/22 13:20 100 05/19/22 13:20 77 05/19/22 13:15 99 05/19/22 13:15 82 05/19/22 13:12 91 05/19/22 13:12 94 H 05/19/22 13:10 100 05/19/22 13:10 79 05/19/22 13:10 81 05/19/22 13:10 116/71 05/19/22 13:04 100 05/19/22 13:04 84 05/19/22 12:00 36.5 C Coding Level of Care Code None Diagnoses Encounter for induction of labor Z34.90
[2022-05-20] MEDS ORDERED: BENZOCAINE 20% AER SPR 82.5 GM CAN EXT PRN (00:59)
[2022-05-20] MEDS ORDERED: HYDROCORTISONE ACETATE 25 MG SUPP PR PRN (00:59)
[2022-05-20] MEDS ORDERED: DIPHTHERIA/TETANUS/PERTUSSIS 0.5 ML SYR/VIAL IM ONE (00:59)
[2022-05-20] MEDS ORDERED: bisacodyL 10 MG SUPP PR PRN (00:59)
[2022-05-20] MEDS ORDERED: OXYTOCIN 30 UNITS/500 ML BAG IV PRN (00:59)
--- NOTE | 2022-05-20 01:07 | Delivery Summary ---
Vaginal Delivery Summary Date of Service May 20, 2022 Vaginal Delivery Summary and 3rd Degree LAC (partial) Pre-operative Diagnosis: at 41 weeks Post-operative Diagnosis: same terminal mec Procedure: jarvis bulb pitocin induction epidural arom iupc partial third degree laceration and repair EBL: 400cc Anesthesia: epidural Procedure: The patient presented to labor and delivery for postdates induction. Jarvis bulb easily removed and 4cm. Started on pit, got epidural, arom for clear fluid and iupc. She progressed to c/c/+2. The patient pushed for about 2.5 hours to deliver a viable female infant in liz position. The rest of the infant was then delivered without difficulty after a nuchal cord x 1 reduced. The baby was placed on the maternal abdomen. The nose and mouth were bulb suctioned and the infant was placed in the maternal abdomen. Cord was clamped and cut at about 30 secs of life. Cord blood and segment obtained. Placenta delivered spontaneous, intact with a three vessel cord. Cervix/sulci/rectum were intact. A partial third degree perineal laceration was repaired in the normal standard fashion by reinforcing the sphincter with 2- 0 Vicryl. Hemostasis obtained with dilute pitocin and fundal massage. Apgars were 7/9. Mother and baby doing well at the end of the delivery The baby was taken to the warmer for drying and attention during the repair. [facility] Vaginal Delivery Charge Delivery Type Details: and 3rd Degree LAC (partial)
--- NOTE | 2022-05-20 01:11 | Anesthesia Procedure Note ---
Date of Service May 20, 2022 Anesthesia Post Epidural Note Vital Signs Vital Signs: Temp Pulse Resp BP Pulse Ox 36.9 C 90 16 110/58 L 94 05/19/22 21:40 05/20/22 01:06 05/19/22 21:40 05/20/22 01:06 05/20/22 00:56 Notes Mental Status: alert / awake / arousable and participated in evaluation Nausea / Vomiting: adequately controlled Pain: adequately controlled Airway Patency, RR, SpO2: stable & adequate BP & HR: stable & adequate Hydration State: stable & adequate Neuraxial Anesthesia: was administered and sensory block is resolving Anesthetic Complications: no major complications apparent and Pt Satisfied with anesthetic care Epidural: Removed without complications and With tip intact
[2022-05-20 01:32] LABS: Base Excess Cord Arterial Bld -9.5 mEq/L (-9-1.8); CO2 Cord Arterial Blood 59 mmHg (39.1-73.5); HCO3 Cord Arterial Blood 20 mmol/L (19.7-28.5); Oxygen Sat Cord Arterial Blood < 60.0 % (<60); PO2 Cord Arterial Blood 18 mmHg (4.1-31.7); pH Cord Arterial Blood 7.14 (7.1-7.38)
[2022-05-20 01:35] LABS: Base Excess Cord Venous Blood -7.3 mEq/L (-7.7-1.9); Cord Venous Blood HCO3 19 mmol/L (18.4-26.8); Cord Venous Blood PCO2 39 mmHg (30.4-57.2); Cord Venous Blood PO2 20 mmHg (14.1-43.3); Cord Venous Blood pH 7.29 (7.20-7.44); O2 Saturation Cord Venous Bld < 60.0 % (<68)
[2022-05-20] MEDS: IBUPROFEN 600 MG TAB PO PRN ×4 (05:45→23:48)
[2022-05-20] MEDS: ACETAMINOPHEN 325 MG TAB PO PRN ×3 (05:45→19:59)
[2022-05-20] MEDS ORDERED: diphenhydrAMINE Capsule 25 MG CAP PO PRN (07:32)
[2022-05-20] MEDS: PRENATAL VITAMIN 1 TAB PO SCH (08:44)
[2022-05-20] MEDS: DOCUSATE SODIUM 100 MG CAP PO SCH ×2 (08:44→19:58)
[2022-05-20 09:33] LABS: Hematocrit (blood only) 35.7 % (34.1-44.9); Hemoglobin 12.4 g/dl (12.0-16.0)
--- NOTE | 2022-05-21 05:34 | Obstetrical Progress Note ---
Date of Service May 21, 2022 Assessment & Plan (1) care following vaginal delivery: (2) Obstetric labial laceration, delivered, current hospitalization: Plan - Overall, feeling well and eating well today - feeding going well without concern - Urinating and passing gas appropriately - Ambulating well throughout room - Pain controlled w/ Tylenol and Ibuprofen - Hgb 05/20 12.4 - Routine PP care progressing well - Anticipate discharge today Admission and Anticipated Discharge Date Admission Date: May 19, 2022 Supervising Physician Co-Signing Physician Notes Resident Physician Supervision Note: I interviewed and examined the patient. Discussed with Dr. Blunt and agree with findings and plan as documented in the note. Any exceptions or clarifications are listed here: [None] Documented By: Celeste Dobson MD, FACOG Subjective Today 05/21: Patient is a 36 y/o female who is PPD #1 following delivery at 41w2d. Delivery was complicated by a 3rd degree laceration and meconium fluid. Patient is feeling overall well today, and wishes to go home this afternoon - Ambulation - well throughout room - Voiding/[place] - independent voids, no dysuria or pressure - Gas/Stool - passing gas, no bowel movement - Diet - regular, no nausea or emesis - Lochia - diminishing, moderate amount - Infant Feeding Type - breast feeding, no concerns - Pain Level - 2/10, controlled with Ibuprofen and Tylenol Review of Systems - Denies fever, chills, sweats - Denies shortness of breath, difficulty breathing, chest pain, palpitations, chest pressure. - Denies breast pain. - Denies dysuria. - Denies headache or changes in vision. Physical Exam Physical Exam: General: Alert, oriented. No acute distress. Cardiac: RRR, normal S1/S2, no murmurs/rubs/gallops. Respiratory: Non-labored, CTAB, no wheezes/rales/rhonchi. Symmetric chest rise. Abdomen: Soft, nontender, nondistended. Bowel sounds present. Uterus: Uterine fundus firm, palpable 2 cm below umbilicus. Lower Extremities: No lower extremity edema or swelling. No deep calf pain. Gladis's negative bilaterally. Results & Data ([facility]) Vital Signs (Past 12 Hours) Vital Signs Temp Pulse Resp BP Pulse Ox O2 Del Method 05/20/22 23:40 36.7 C 73 18 109/66 98 Room Air 05/20/22 20:00 36.6 C 79 18 111/71 98 Room Air Resident Activity Tracking Resident Involvement: Resident Care Provided Care Provided: OB Delivery
[2022-05-21] MEDS: IBUPROFEN 600 MG TAB PO PRN (08:40)
[2022-05-21] MEDS: PRENATAL VITAMIN 1 TAB PO SCH (08:40)
[2022-05-21] MEDS: DOCUSATE SODIUM 100 MG CAP PO SCH (08:40)
[2022-05-21] MEDS ORDERED: bisacodyL 5 MG TABEC PO SCH (20:00)
== END 2022-05-21 15:10 | disposition home or self-care (01) | DRG 768 ==
LOC: 4S1 07:43 → 4E2 05-20 06:30
DX: Z3A.41 41 weeks gestation of pregnancy; Z37.0 Single live birth; O70.20 Third degree perineal laceration during delivery, unspecified; O48.0 Post-term pregnancy

== ENCOUNTER 2024-03-13 07:55 | Inpatient (IN) ==
[2024-03-13] MEDS ORDERED: OXYTOCIN 30 UNITS/NSS 30 UNITS/500 ML BAG IV PRN (08:31)
[2024-03-13] MEDS ORDERED: LIDOCAINE 1% LOCAL 20 ML VIAL INFIL PRN (08:31)
--- NOTE | 2024-03-13 08:33 | History & Physical Report ---
Date of Service March 13, 2024 Assessment & Plan (1) 40 weeks gestation of : Plan admit. expectant management. pit if indicated. epidural on demand. fetus category one. Anticipate History of Present Illness Chief Complaint: rom Primary Care Provider: Julio Mejias MD Patient is a 28yowf with iup at 40 weeks who presents to labor and delivery noting gush of clear fluid at 5:30 with multiple small gushes, no vb. Notes onset of contractions every 5-10 minutes. +fm. and Delivery Plans Placenta previa - Pelvic rest - US at 32 weeks--resolved AMA Weekly NST's @ 36 weeks Patient states had flu shot OB Labs: Hemoglobin 10.8 g/dL (11.7-15.5) L 12/21/23 Hematocrit 33.2 % (35.0-45.0) L 12/21/23 Mean Corpuscular Volume 88.3 fL (80.0-100.0) 08/03/23 Platelet Count 295 Thousand/uL (140-400) 08/03/23 Rubella IgG Antibody 3.40 Index 08/03/23 Hepatitis B Surface Antigen. NON-REACTIVE (NON-REACTIVE) 08/03/23 Hepatitis C Antibody (EIA) NON-REACTIVE (NON-REACTIVE) 08/03/23 HIV (1&2) Ab and P24 Ag, 4th Gener NON-REACTIVE (NON-REACTIVE) 10/03/21 HIV (1&2) Ag and Ab Confirmation NON-REACTIVE (NON-REACTIVE) 08/03/23 Glucose 1 Hour 50 gm Load 132 mg/dL (<135) 12/21/23 OB Optional Labs: Chlamydia trachomatis RNA Not Detected (NotDetected) 08/03/23 Neisseria gonorrhoeae RNA Not Detected (NotDetected) 08/03/23 Labs Reviewed: Declines genetics--mln gbs neg Allergies Allergy/AdvReac Type Severity Reaction Status Date / Time No Known Drug Allergies Allergy Verified 03/07/24 14:36 Home Medications Medication Instructions Recorded Confirmed Type prenat.vits,toro,hpn-qblp-petpe 1 tab PO DAILY 09/25/21 03/07/24 History fish,bora,flax oils-om3,6,9no1 PO 07/27/23 03/07/24 History [[place] 3-6-9 Complex] magnesium PO 07/27/23 03/07/24 History Patient History Medical History (Updated 03/13/24 @ 08:36 by Mulu Johnson MD, FACOG) Placenta previa resolved 32 weeks Hypertriglyceridemia H/O varicella Surgical History [place] teeth extracted S/P tonsillectomy Family History Grandmother (Paternal) Diabetes Grandfather (Maternal) Colorectal cancer Father A-fib Other Alzheimer disease Dyslipidemia Hypertension Parkinson disease Twin Denies family history of Ovarian cancer Breast cancer Social History (Updated 07/27/23 @ 14:07 by Mari Barclay) Smoking Status: Never smoker Second Hand Exposure: No; Do You Dip or Chew Tobacco: No; Hx Alcohol Use: No Hx Substance Use: No Preferred Language: Bulgarian Communication Ability: Effective Division Supervisor Required: No Beliefs That Will Affect Care: None marital status: marital status details: Ramon Durand(42) [phone] Current Living Situation: Spouse and Family Current Living Situation Comment: lives with spouse, child, no pets current occupational status: employed 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 Date GA wks Lbr Lgth wt Sex Type del Anes Place Del Prov ? Comment 05/20/22 43 6lb 7.8oz F Epi dural [facility]. Johnson N [employer] MANAGER History noncontributory Physical Exam Constitutional: WD/WN, vitals as above Gastrointestinal (Abdomen): soft, gravid Psychiatric: A+Ox3, euthymic affect Genitourinary: sse--gross, clear fluid sve--3/90/-2 toco--q5=10min efm--130s with mod variability, accels to 160s, no decels Results & Data Vital Signs (Past 12 Hours) Vital Signs Pulse BP 03/13/24 08:20 71 128/70 Coding Level of Care Code None Diagnoses 40 weeks gestation of Z3A.40
[2024-03-13 09:05] LABS: Hematocrit (blood only) 35.6 % (37.0-47.0); Mean Corpuscular Hgb Conc 33.7 g/dL (32.0-36.0); Mean Platelet Volume 10.2 fL (9.4-12.4); Platelet Count 157 K/uL (130-400); RDW Coefficient of Variation 12.6 % (11.5-14.5); RDW Standard Deviation 41.2 fL (36.4-46.3); White Blood Count 6.71 K/ul (4.8-10.8)
[2024-03-13] MEDS: LACTATED RINGER'S 1,000 ML IV PRN (09:59)
--- NOTE | 2024-03-13 10:20 | Anesthesiology Consultation ---
Date of Service March 13, 2024 Assessment & Plan (1) Encounter for pre-operative examination: Chart Review Chart Review: Acceptable Risk for Labor Epidural History Height/Weight Height: 5 ft 9 in Weight: 73.482 kg Allergies Allergy/AdvReac Type Severity Reaction Status Date / Time No Known Drug Allergies Allergy Mild Unknown Verified 03/13/24 08:38 Medications Home Medications Medication Instructions Recorded Confirmed Last Taken fish, borage, flaxseed oils-omega 1 cap PO DAILY 03/13/24 03/13/24 11/23/23 3,6,9 cb #1 400 mg-400 mg-400 mg cap magnesium 250 mg tablet 250 mg PO DAILY 03/13/24 03/13/24 11/23/23 vit no.95-ferrous 1 tab PO DAILY 03/13/24 03/13/24 03/12/24 10:00 fumarate 28 mg-folic acid 800 mcg tablet () Active Medications Generic Name Dose Route Start Last Admin Trade Name Freq PRN Reason Stop Dose Admin Lactated Ringer's 1,000 mls @ 125 mls/hr 03/13/24 08:31 03/13/24 10:00 Lr IV 03/15/24 08:30 999 mls/hr .Q8H PRN Infusion L&D Protocol Protocol Past Medical History Medical History Placenta previa resolved 32 weeks Hypertriglyceridemia H/O varicella Past Family History Family History Grandmother (Paternal) Diabetes Grandfather (Maternal) Colorectal cancer Father A-fib Other Alzheimer disease Dyslipidemia Hypertension Parkinson disease Twin Denies family history of Ovarian cancer Breast cancer Past Surgical History Surgical History [place] teeth extracted S/P tonsillectomy Social History Smoking Status: Never smoker Do You Dip or Chew Tobacco: No Hx Alcohol Use: No Hx Substance Use: No substance use type: does not use Physical Exam Vital Signs Last Vital Signs Temp 36.9 C 03/13/24 09:57 Pulse 71 03/13/24 08:20 Resp 16 03/13/24 08:08 BP 128/70 03/13/24 08:20 Testing Laboratory Results 03/13/24 08:42
[2024-03-13] MEDS: LIDOCAINE 2%/EPINEPHRINE 1:200,000 20 ML PF ONE (10:48)
[2024-03-13] MEDS: BUPIVACAINE 0.25% PF 30 ML VIAL ONE (10:48)
[2024-03-13] MEDS: fentaNYL citrate PF 100 MCG/2 ML VIAL ONE (10:49)
[2024-03-13] MEDS: fentANYL 2 MCG/ML BUPIVacaine 0.125%-NSS 100ML BAG ONE (10:49)
[2024-03-13] MEDS ORDERED: BUPIVACAINE 0.25% PF 30 ML VIAL EPI STA (10:50)
[2024-03-13] MEDS ORDERED: ONDANSETRON INJ 2 MG/ML 2 ML VIAL IV PRN (10:50)
[2024-03-13] MEDS ORDERED: SODIUM CHLORIDE 0.9% PF INJ 10 ML VIAL EPI STA (10:50)
[2024-03-13] MEDS ORDERED: fentaNYL citrate PF 100 MCG/2 ML VIAL EPI STA (10:50)
[2024-03-13] MEDS ORDERED: LIDOCAINE 2% MPF LOCAL 5 ML VIAL EPI PRN (10:50)
[2024-03-13] MEDS ORDERED: ROPIVACAINE 0.5% PF 5 MG/ML 20 ML VIAL EPI PRN (10:50)
[2024-03-13] MEDS ORDERED: NALOXONE HCL 1 MG in SODIUM CHLORIDE 0.9% 1,000 ML IV PRN (10:50)
[2024-03-13] MEDS ORDERED: ePHEDrine sulfate 50 MG/ML AMP IV PRN (10:50)
[2024-03-13] MEDS ORDERED: BUPIVACAINE 0.25% PF 30 ML VIAL EPI PRN (10:50)
[2024-03-13] MEDS ORDERED: NALOXONE HCL 0.4 MG/1 ML VIAL/CARP IV PRN (10:50)
[2024-03-13] MEDS ORDERED: SODIUM CHLORIDE 0.9% PF INJ 10 ML VIAL EPI PRN (10:50)
[2024-03-13] MEDS ORDERED: LIDOCAINE 2%/EPINEPHRINE 1:200,000 20 ML PF EPI STA (10:50)
[2024-03-13] MEDS ORDERED: fentaNYL citrate PF 100 MCG/2 ML VIAL EPI PRN (10:50)
--- NOTE | 2024-03-13 11:51 | Labor Progress Brief Note ---
Date of Service March 13, 2024 Subjective comfortable after epidural Assessment & Plan (1) 40 weeks gestation of : Plan add pit for more regular contractions. fetus category one. anticipate . Admission and Anticipated Discharge Date Admission Date: March 13, 2024 Physical Exam Physical Exam: cx--/-2 efm--130s wtih mod variability, accels to 170s, no decels toco--q2-5min, coupling Results & Data Vital Signs (Past 12 Hours) Vital Signs Temp Pulse Resp BP Pulse Ox 03/13/24 11:46 72 100 03/13/24 11:41 72 119/70 99 03/13/24 11:36 74 100 03/13/24 11:31 72 100 03/13/24 11:26 72 99 03/13/24 11:24 77 121/70 03/13/24 11:21 74 100 03/13/24 11:20 77 123/72 03/13/24 11:16 71 99 03/13/24 11:15 73 116/66 03/13/24 11:11 71 100 03/13/24 11:10 12 03/13/24 11:10 12 03/13/24 11:09 72 115/69 03/13/24 11:06 83 98 03/13/24 11:03 75 117/67 03/13/24 11:01 77 98 03/13/24 11:00 84 123/68 03/13/24 10:57 75 123/65 03/13/24 10:56 73 99 03/13/24 10:55 14 03/13/24 10:55 14 03/13/24 10:54 77 115/65 03/13/24 10:51 100 03/13/24 10:51 80 03/13/24 10:51 81 120/65 03/13/24 10:50 14 03/13/24 10:50 14 03/13/24 10:48 69 118/64 03/13/24 10:46 77 14 100 03/13/24 10:45 81 118/66 03/13/24 10:42 81 128/68 03/13/24 10:41 79 100 03/13/24 10:38 88 90 03/13/24 10:36 81 100 03/13/24 10:28 82 98 07/21/24 09:57 36.9 C 03/13/24 08:20 71 128/70 03/13/24 08:08 36.8 C 16 Coding Level of Care Code None Diagnoses 40 weeks gestation of Z3A.40
[2024-03-13] MEDS: OXYTOCIN 30 UNITS/NSS 30 UNITS/500 ML BAG IV PRN ×2 (12:20→20:10)
[2024-03-13] MEDS ORDERED: NURSING L&D Epidural Breakthrough Pain Update ONE (17:31)
--- NOTE | 2024-03-13 18:10 | Labor Progress Brief Note ---
Date of Service March 13, 2024 Pushing wtih good effort. Assessment & Plan (1) 40 weeks gestation of : Plan Pushing with good effort and baby so far tolerating. I suspect we are dealing with an op presentation currently. Will continue second stage. Admission and Anticipated Discharge Date Admission Date: March 13, 2024 Physical Exam Physical Exam: cx--c/c/+2 toco--q2-4min efm--120s wtih mod variability, variables with pushing Results & Data Vital Signs (Past 12 Hours) Vital Signs Temp Pulse Resp BP Pulse Ox 03/13/24 18:03 90 99 03/13/24 17:59 88 93 03/13/24 17:57 83 100 03/13/24 17:56 77 122/55 L 03/13/24 17:54 95 H 90 03/13/24 17:52 90 94 03/13/24 17:47 92 H 100 03/13/24 17:42 135 H 99 03/13/24 17:41 75 111/58 L 03/13/24 17:37 100 H 85 L 03/13/24 17:35 105 H 91 03/13/24 17:32 106 H 78 L 03/13/24 17:30 85 90 03/13/24 17:27 87 90 03/13/24 17:25 82 123/59 L 03/13/24 17:23 89 91 03/13/24 17:22 81 100 03/13/24 17:17 74 100 03/13/24 17:12 70 100 03/13/24 17:11 70 117/62 03/13/24 17:07 72 100 03/13/24 17:02 66 100 03/13/24 16:57 71 100 03/13/24 16:56 71 109/65 03/13/24 16:52 81 100 03/13/24 16:47 76 99 03/13/24 16:42 76 101/59 L 100 03/13/24 16:37 76 100 03/13/24 16:32 81 99 03/13/24 16:28 36.9 C 03/13/24 16:27 79 100 03/13/24 16:22 81 100 03/13/24 16:18 95 H 85 L 03/13/24 16:17 88 100 03/13/24 16:13 86 89 L 03/13/24 16:12 91 H 100 03/13/24 16:06 93 H 100 03/13/24 16:01 72 100 03/13/24 15:56 100 03/13/24 15:56 83 03/13/24 15:56 71 112/61 03/13/24 15:51 78 100 03/13/24 15:46 74 100 03/13/24 15:41 67 100 03/13/24 15:40 72 110/64 03/13/24 15:36 73 100 03/13/24 15:31 68 100 03/13/24 15:26 71 121/66 100 03/13/24 15:21 78 100 03/13/24 15:16 84 100 03/13/24 15:11 69 120/66 100 03/13/24 15:06 75 100 03/13/24 15:04 77 93 03/13/24 15:01 77 99 03/13/24 14:57 78 91 03/13/24 14:56 77 100 03/13/24 14:55 112 H 126/84 03/13/24 14:51 73 100 03/13/24 14:46 76 100 03/13/24 14:41 62 100 03/13/24 14:36 65 100 03/13/24 14:31 65 100 03/13/24 14:28 66 112/72 03/13/24 14:26 64 100 03/13/24 14:21 64 100 03/13/24 14:16 71 100 03/13/24 14:12 65 106/69 03/13/24 14:11 73 100 03/13/24 14:06 80 100 03/13/24 14:01 36.8 C 84 14 100 03/13/24 13:56 72 100 03/13/24 13:55 75 111/58 L 03/13/24 13:51 82 100 03/13/24 13:46 86 100 03/13/24 13:41 85 99 03/13/24 13:40 74 111/61 03/13/24 13:36 79 99 03/13/24 13:31 78 100 03/13/24 13:30 14 03/13/24 13:30 14 03/13/24 13:27 67 112/59 L 03/13/24 13:26 68 100 03/13/24 13:21 81 99 03/13/24 13:16 74 100 03/13/24 13:11 93 H 99 03/13/24 13:10 75 103/58 L 03/13/24 13:06 74 100 03/13/24 13:01 65 100 03/13/24 12:56 67 100 03/13/24 12:55 66 110/65 03/13/24 12:51 62 100 03/13/24 12:46 67 99 03/13/24 12:41 69 100 03/13/24 12:40 69 110/67 03/13/24 12:36 64 99 03/13/24 12:31 67 99 03/13/24 12:26 67 100 03/13/24 12:25 67 111/65 03/13/24 12:21 71 99 03/13/24 12:16 71 98 03/13/24 12:12 65 111/63 03/13/24 12:11 66 99 03/13/24 12:06 82 97 03/13/24 12:01 70 98 03/13/24 12:00 14 03/13/24 12:00 14 03/13/24 12:00 20 03/13/24 12:00 36.9 C 20 03/13/24 11:56 66 110/66 99 03/13/24 11:51 76 100 03/13/24 11:46 72 100 03/13/24 11:41 72 119/70 99 03/13/24 11:40 14 03/13/24 11:40 14 03/13/24 11:36 74 100 03/13/24 11:31 72 100 03/13/24 11:30 18 03/13/24 11:30 18 03/13/24 11:26 72 99 03/13/24 11:25 14 03/13/24 11:25 14 03/13/24 11:24 77 121/70 03/13/24 11:21 74 100 03/13/24 11:20 77 123/72 03/13/24 11:16 71 99 03/13/24 11:15 73 116/66 03/13/24 11:11 71 100 03/13/24 11:10 12 03/13/24 11:10 12 03/13/24 11:09 72 115/69 03/13/24 11:06 83 98 03/13/24 11:03 75 117/67 03/13/24 11:01 77 98 03/13/24 11:00 84 123/68 03/13/24 10:57 75 123/65 03/13/24 10:56 73 99 03/13/24 10:55 14 03/13/24 10:55 14 03/13/24 10:54 77 115/65 03/13/24 10:51 100 03/13/24 10:51 80 03/13/24 10:51 81 120/65 03/13/24 10:50 14 03/13/24 10:50 14 03/13/24 10:48 69 118/64 03/13/24 10:46 77 14 100 03/13/24 10:45 81 118/66 03/13/24 10:42 81 128/68 03/13/24 10:41 79 100 03/13/24 10:38 88 90 03/13/24 10:36 81 100 03/13/24 10:28 82 98 03/13/24 09:57 36.9 C 03/13/24 08:20 71 128/70 03/13/24 08:08 36.8 C 16 Coding Level of Care Code None Diagnoses 40 weeks gestation of Z3A.40
[2024-03-13] MEDS: fentANYL 2 MCG/ML BUPIVacaine 0.125%-NSS 100ML BAG EPI PRN (18:42)
[2024-03-13] MEDS: METHYLERGONOVINE MALEATE 0.2 MG/ML AMP IM ONE (19:36)
[2024-03-13] MEDS: miSOPROStoL 200 MCG TAB PR ONE (19:38)
--- NOTE | 2024-03-13 19:53 | Delivery Summary ---
Vaginal Delivery Summary Date of Service March 13, 2024 Vaginal Delivery Summary and 2nd Degree LAC Pre-operative Diagnosis: at 40 weeks srom early labor Post-operative Diagnosis: same Procedure: epidural pitocin augmentation manual extraction of placenta with succinturate lobe second degree laceration and repair QBL: 305cc Anesthesia: epidural Procedure: The patient presented to labor and delivery with gross srom and early labor. She got an epidural and then pitocin augmentation. She became complete and labored down for a bit. The patient pushed for around 2 hours to deliver a viable male infant in dop position. The nose and mouth were bulb suctioned on the perineum and the rest of the infant was then delivered without difficulty. A double nuchal cord x 2 was reduced prior to delivery of the shoulders. The baby was vigorous. The nose and mouth were again bulb suctioned and the infant was placed in the maternal abdomen for drying and attention. Cord was clamped and cut at one minute of life. Cord blood and segment obta ined. Placenta delivered by manual extraction, intact with a three vessel cord. Succinturate lobe noted. Cervix/sulci/rectum were intact. A second degree perineal laceration was repaired in the normal standard fashion. Hemostasis obtained with dilute pitocin and fundal massage, IM methergine and 800mcg of cytotec. Apgars were 8/9. Mother and baby doing well at the end of the delivery[place] [facility] [place] Delivery Type Details: and 2nd Degree LAC
[2024-03-13] MEDS ORDERED: HYDROCORTISONE ACETATE 25 MG SUPP PR PRN (19:56)
[2024-03-13] MEDS ORDERED: bisacodyL 10 MG SUPP PR PRN (19:56)
[2024-03-13] MEDS: ACETAMINOPHEN 325 MG TAB PO PRN (20:14)
[2024-03-13] MEDS: IBUPROFEN 600 MG TAB PO PRN (20:14)
[2024-03-13] MEDS: ceFAZolin 1000MG 1,000 MG/7.5 ML SYR IV STA (20:27)
[2024-03-13] MEDS: DIPHTHER/TETAN/PERTUS Vaccine (Tdap, Adol/Adult) 0.5mL IM ONE (20:35)
[2024-03-13] MEDS: ePHEDrine sulfate 50 MG/ML AMP ONE (20:52)
[2024-03-13] MEDS: SODIUM CHLORIDE 0.9% PF INJ 10 ML VIAL ONE (20:52)
[2024-03-13] MEDS: BENZOCAINE 20% SPRY 85 APPLN/85 GM CAN EXT PRN (22:05)
--- NOTE | 2024-03-13 23:04 | Communication Note ---
Date of Service: March 13, 2024 ctsp by nursing because of change in condition. Patient started getting shaking chills , anxious. When I go to the room, she was lying flat in bed , shaking. Nursing attempting to take vitals. Very firm press on fundus showed it to be firm at u with minimal bleeding. Nursing did note a little gush when first got to the room. Her ice pad was changed with red blood noted but not soaking around into surrounding pads. Pulse in the 80s, bp in 120s/70s (manual) WRapped in warm blankets and she started to improve. temp 36.6 with repeat of 37 Vitals stable, no evidence of excessive or concerning bleeding. REassured her . Will continue to monitor closely.
[2024-03-13] MEDS: DOCUSATE SODIUM 100 MG CAP PO SCH (23:27)
--- NOTE | 2024-03-14 00:52 | Anesthesia Procedure Note ---
Date of Service March 14, 2024 Anesthesia Post Epidural Note Vital Signs Vital Signs: Temp Pulse Resp BP Pulse Ox O2 Del Method 37.1 C 75 16 106/66 96 Room Air 03/14/24 00:01 03/14/24 00:01 03/13/24 23:20 03/14/24 00:01 03/13/24 23:20 03/13/24 23:20 Pain Intensity Bilateral Abdomen: Pain Intensity: 5 Notes Mental Status: alert / awake / arousable and participated in evaluation Nausea / Vomiting: adequately controlled Pain: adequately controlled Airway Patency, RR, SpO2: stable & adequate BP & HR: stable & adequate Hydration State: stable & adequate Neuraxial Anesthesia: was administered and sensory block is resolving Anesthetic Complications: no major complications apparent Epidural: Removed without complications and With tip intact
[2024-03-14 06:45] LABS: Hematocrit (blood only) 36.1 % (37.0-47.0); Hemoglobin 11.9 g/dl (12.0-16.0)
--- NOTE | 2024-03-14 07:08 | Obstetrical Progress Note ---
Date of Service March 14, 2024 Assessment & Plan (1) Encounter for assessment: Plan Doing well. Routine pp care. h/h stable this am. Day #:: 1 Subjective Ambulation: ambulating normally Voiding: no voiding problems Passing Gas:: Yes Diet Tolerance:: regular diet Lochia:: Small Feeding Type:: breast feeding No further episodes of shaking. Feeling better. Physical Exam Constitutional WD/WN, vitals as above Gastrointestinal (Abdomen) soft, gravid, nt ff/nt 2 below u Psychiatric A+Ox3, euthymic affect Results & Data Vital Signs (Past 12 Hours) Vital Signs Temp Pulse Pulse Resp BP BP Pulse Ox 03/14/24 03:10 37 C 71 16 113/71 03/14/24 00:01 37.1 C 75 106/66 03/13/24 23:20 37.4 C 77 16 107/68 96 03/13/24 22:57 37 C 03/13/24 22:48 36.6 C 82 16 124/70 03/13/24 22:01 36.9 C 109 H 16 109/70 98 03/13/24 21:40 36.8 C 20 03/13/24 21:40 72 115/68 03/13/24 21:25 75 121/75 03/13/24 21:10 18 03/13/24 21:10 77 116/67 03/13/24 20:55 76 115/63 03/13/24 20:40 18 03/13/24 20:40 71 120/64 03/13/24 20:25 18 03/13/24 20:25 76 135/63 03/13/24 20:10 20 03/13/24 20:10 67 117/62 03/13/24 19:55 18 03/13/24 19:55 82 123/69 03/13/24 19:40 20 03/13/24 19:40 76 115/66 03/13/24 19:35 81 111/56 L 03/13/24 19:25 36.8 C 91 H 113/54 L 03/13/24 19:18 127 H 98 03/13/24 19:13 105 H 98 03/13/24 19:12 113 H 129/60 03/13/24 19:08 99 H 98 O2 Del Method 03/14/24 03:10 03/14/24 00:01 03/13/24 23:20 Room Air 03/13/24 22:57 03/13/24 22:48 03/13/24 22:01 Room Air 03/13/24 21:40 03/13/24 21:40 03/13/24 21:25 03/13/24 21:10 03/13/24 21:10 03/13/24 20:55 03/13/24 20:40 03/13/24 20:40 03/13/24 20:25 03/13/24 20:25 03/13/24 20:10 03/13/24 20:10 03/13/24 19:55 03/13/24 19:55 03/13/24 19:40 03/13/24 19:40 03/13/24 19:35 03/13/24 19:25 03/13/24 19:18 03/13/24 19:13 03/13/24 19:12 03/13/24 19:08
[2024-03-14] MEDS: PRENATAL VITAMIN 1 TAB PO SCH (08:04)
[2024-03-14] MEDS: oxyCODONE/ACETAMINOPHEN 5mg/325mg TAB PO PRN (16:12)
[2024-03-14] MEDS: bisacodyL 5 MG TABEC PO SCH (20:42)
--- NOTE | 2024-03-15 08:23 | Obstetrical Progress Note ---
Date of Service March 15, 2024 Assessment & Plan (1) Encounter for assessment: Plan stable, ready to go home, f/u 6wk pp, instructions reviewed rhpos,ri, breast Day #:: 2 Subjective Ambulation: ambulating normally Voiding: no voiding problems Diet Tolerance:: regular diet Lochia:: Small Feeding Type:: breast feeding no concerns Constitutional: + as per Subjective / HPI Physical Exam Constitutional WD/WN, vitals as above Respiratory normal respiratory effort, lungs clear to auscultation Cardiovascular Rate/Rhythm: regular rate and regular rhythm Gastrointestinal (Abdomen) Inspection/Auscultation: abdomen normal to inspection Percussion/Palpation: abdomen soft Fundus firm 2cm down Musculoskeletal nt calves no edema Neurologic grossly normal Psychiatric A+Ox3, euthymic affect Results & Data Vital Signs (Past 12 Hours) Vital Signs Temp Pulse Resp BP O2 Del Method 03/14/24 23:30 97.7 F 76 16 100/58 L Room Air
== END 2024-03-15 13:05 | disposition home or self-care (01) | DRG 807 ==
LOC: OPB 07:55 → 4S1 07:56 → 4E2 22:17